=== PATIENT | female | born 1965 | race Caucasian/White ===

== ENCOUNTER 2017-05-22 12:33 | Emergency (ER) | payer MEDICAID, OTHER ==
[2017-05-22 13:19] LABS: ADD MAN DIFF? NO
[2017-05-22 13:42] LABS: BASOPHILS % 0.3 % (0.0-2.0); EOSINOPHILS # 0.1 10^3/ul (0.0-0.5); EOSINOPHILS % 2.1 % (0.0-7.0); HEMATOCRIT 40.7 % (37.0-47.0); HEMOGLOBIN 13.7 g/dl (12.0-16.0); LYMPHOCYTES # 0.8 10^3/ul (0.8-2.9); LYMPHOCYTES % 23.9 % (15.0-51.0); MEAN CORPUSCULAR HEMOGLOBIN 31.4 pg (29.0-33.0); MEAN CORPUSCULAR HGB CONC 33.7 g/dl (32.0-37.0); MEAN CORPUSCULAR VOLUME 93.3 fl (82.0-101.0); MEAN PLATELET VOLUME 12.9 fl (7.4-10.4); MONOCYTE # 0.4 10^3/ul (0.3-0.9); MONOCYTES % 12.8 % (0.0-11.0); NEUTROPHILS % 60.6 % (39.0-77.0); PLATELET COUNT 106 10^3/UL (140-415); RED BLOOD COUNT 4.36 10^6/ul (4.20-5.40); RED CELL DISTRIBUTION WIDTH 12.2 % (11.5-14.5)
[2017-05-22 13:42] LABS: WHITE BLOOD COUNT 3.4 10^3/ul (4.8-10.8)
[2017-05-22] MEDS: METHYLPREDNISOLONE 125 MG INJ IV (13:55)
[2017-05-22] MEDS: DIPHENHYDRAMINE 50 MG INJ IV (13:56)
[2017-05-22] MEDS: SOD CHLORIDE 0.9% 1,000 ML IV (13:56)
[2017-05-22] MEDS: FAMOTIDINE 20 MG TAB PO (13:56)
[2017-05-22] MEDS: ONDANSETRON 4 MG INJ IV (13:56)
[2017-05-22 14:06] LABS: ALANINE AMINOTRANSFERASE 51 IU/L (13-69); ALBUMIN 4.2 g/dl (3.3-4.9); ALKALINE PHOSPHATASE 69 IU/L (42-121); ASPARTATE AMINO TRANSFERASE 59 IU/L (15-46); BILIRUBIN,INDIRECT 0.1 mg/dl (0-1.1); BILIRUBIN,TOTAL 0.1 mg/dl (0.2-1.3); BLOOD UREA NITROGEN 9 mg/dl (7-20); CALCIUM 9.3 mg/dl (8.4-10.2); CARBON DIOXIDE 26 mmol/L (21-31); CHLORIDE 102 mmol/L (97-110); CREATININE 0.82 mg/dl (0.44-1.00); GLUCOSE 96 mg/dl (70-220); SODIUM 141 mmol/L (135-144)
[2017-05-22 14:12] LABS: ANION GAP 16 (8-16); PARTIAL THROMBOPLASTIN TIME 27.3 Sec (25.0-35.0); POTASSIUM 3.3 mmol/L (3.5-5.1)
[2017-05-22 14:15] LABS: INR 0.87; PROTIME 11.9 Sec (11.9-14.9); PT RATIO 0.9
[2017-05-22] MEDS: LORAZEPAM 2 MG INJ IV (14:40)
[2017-05-22] MEDS: POTASSIUM CHLORIDE (SR) 20 MEQ TAB PO (14:42)
== END 2017-05-22 15:00 | disposition home or self-care (01) ==
LOC: E/R 12:33
DX: R21 Rash and other nonspecific skin eruption (principal); J06.9 Acute upper respiratory infection, unspecified; R07.9 Chest pain, unspecified
CPT/HCPCS: 36415; 71045; 80053; 85025; 85610; 85730; 96374; 96375; 99284-25

== ENCOUNTER 2017-09-26 07:51 | Emergency (ER) | payer BC, MEDICAID ==
[2017-09-26 09:19] LABS: URINE BLOOD (Dip) POC Negative (NEGATIVE); URINE GLUCOSE (Dip) POC Negative (NEGATIVE); URINE KETONES (Dip) POC Negative (NEGATIVE); URINE LEUKOCYTE EST (Dip) POC Trace (NEGATIVE); URINE NITRITE (Dip) POC Negative (NEGATIVE); URINE TOTAL PROTEIN POC Negative (NEGATIVE)
[2017-09-26 09:19] LABS: URINE PH (Dip) POC 5.5 (5.0-8.5)
[2017-09-26] MEDS: DEXAMETHASONE 10 MG/ML 1 ML INJ IM (09:30)
[2017-09-26] MEDS: DIPHENHYDRAMINE 50 MG CAP PO (09:34)
== END 2017-09-26 10:07 | disposition home or self-care (01) ==
LOC: FTE 07:51
DX: R21 Rash and other nonspecific skin eruption (principal); J45.909 Unspecified asthma, uncomplicated
CPT/HCPCS: 81003; 81025; 96372; 99284-25

== ENCOUNTER 2018-09-13 02:22 | Emergency (ER) | payer BC ==
[2018-09-13] MEDS: LORAZEPAM 1 MG TAB PO (02:49)
[2018-09-13] MEDS: IPRATROPIUM (NEB) 0.5 MG/2.5 ML AMP NEB ×2 (04:40→05:16)
[2018-09-13] MEDS: ALBUTEROL 0.083% (NEB) 2.5 MG/3 ML AMP NEB ×2 (04:40→05:16)
== END 2018-09-13 05:58 | disposition home or self-care (01) ==
LOC: E/R 02:22
DX: F10.920 Alcohol use, unspecified with intoxication, uncomplicated (principal); J45.901 Unspecified asthma with (acute) exacerbation; R06.02 Shortness of breath
CPT/HCPCS: 71045; 94640; 94664; 99284-25

== ENCOUNTER 2018-09-16 19:47 | Emergency (ER) | payer BC ==
[2018-09-16 21:21] LABS: ADD UMIC NO; UR ASCORBIC ACID NEGATIVE (NEGATIVE); UR BILIRUBIN (Dip) NEGATIVE (NEGATIVE); UR BLOOD (Dip) NEGATIVE (NEGATIVE); UR CLARITY CLEAR (CLEAR); UR COLOR COLORLESS (YELLOW); UR GLUCOSE (Dip) NEGATIVE (NEGATIVE); UR KETONES (Dip) NEGATIVE (NEGATIVE); UR LEUKOCYTE ESTERASE (Dip) NEGATIVE Leu/ul (NEGATIVE); UR NITRITE (Dip) NEGATIVE (NEGATIVE); UR SPECIFIC GRAVITY (Dip) 1.001 (1.003-1.030); UR TOTAL PROTEIN (Dip) NEGATIVE (NEGATIVE); UR UROBILINOGEN (Dip) NEGATIVE (NEGATIVE)
== END 2018-09-16 22:04 | disposition home or self-care (01) ==
LOC: FTE 19:47
DX: R39.9 Unspecified symptoms and signs involving the genitourinary system (principal); J45.909 Unspecified asthma, uncomplicated; R30.0 Dysuria; M79.606 Pain in leg, unspecified
CPT/HCPCS: 81003; 99283